=== PATIENT | female | born 1950 | race Caucasian/White ===

== ENCOUNTER 2021-04-12 02:46 | Inpatient (IN) ==
[2021-04-12] MEDS ORDERED: *HR* Dextrose 50 % in Water (Syg) 50 ML SYRINGE ONE (02:55)
[2021-04-12] MEDS ORDERED: *HR* Labetalol 20 MG/4 ML SYRINGE IVP ONE ×2 (02:59→03:00)
[2021-04-12] MEDS ORDERED: Isovue-370 500 ML BOTTLE IVP ONE (03:08)
[2021-04-12 03:17] LABS: Basophils % 0.4 %; Eosinophils % 0.8 %; Hemoglobin 14.1 g/dL (11.5-15.4); Immature Granulocytes % 0.8 % (0-4); Lymphocytes # 1.3 K/mcL (0.6-4.6); Lymphocytes % 25.2 %; Mean Corpuscular HGB Conc 33.6 g/dL (31.6-35.5); Mean Corpuscular Hemoglobin 31.3 pg (28.0-33.3); Mean Corpuscular Volume 93.1 fL (83.0-100.0); Monocytes # 0.3 K/mcL (0.0-1.3); Monocytes % 6.2 %; Neutrophils # 3.4 K/mcL (1.6-8.9); Platelet Count 171 K/mcL (140-400); Red Blood Count 4.51 M/mcL (3.82-4.97); Red Cell Distribution Width 13.4 % (11.5-14.5); Segmented Neutrophils % 66.6 %; White Blood Count 5.2 K/mcL (4.3-11.1)
[2021-04-12] MEDS ORDERED: *HR* Dextrose 50 % in Water (Syg) 50 ML SYRINGE IVP ONE (03:23)
[2021-04-12 03:28] LABS: INR 1.1
[2021-04-12 03:31] LABS: Activated Partial Thrombo Time 34.7 Seconds (26.0-36.0); Alanine Aminotransferase 20 Units/L (7-52); Albumin 4.1 g/dL (3.5-5.7); Albumin/Globulin Ratio 1.3 (1.1-2.2); Alkaline Phosphatase 51 Units/L (34-104); Aspartate Amino Transferase 51 Units/L (13-39); BUN/Creatinine Ratio 8 (6-26); Bilirubin,Total 0.7 mg/dL (0.3-1.0); Blood Urea Nitrogen 9 mg/dL (8-23); Calcium 9.1 mg/dL (8.6-10.3); Carbon Dioxide 23 mEq/L (23-29); Chloride 97 mEq/L (98-107); Ethanol < 10 mg/dL (Less than 10); Globulin 3.1 g/dL (2.4-3.5); Glucose 43 mg/dL (70-105); Osmolality,Calculated 266 (280-300); Sodium 130 mEq/L (136-145); Total Protein 7.2 g/dL (6.4-8.9); eGFR For African Americans 56 (> 60); eGFR For Non-African Americans 46 (> 60)
[2021-04-12 05:11] LABS: Influenza A PCR Negative (Negative); Influenza B PCR Negative (Negative); Resp. Syncytial Virus PCR Negative (Negative)
[2021-04-12 05:20] LABS: SARS-CoV-2 by PCR (In House) Positive (Negative)
[2021-04-12] MEDS ORDERED: Naloxone 0.4 MG/ML INJ IVP PRN (07:33)
[2021-04-12] MEDS ORDERED: Desmopressin Acetate SPRAY 5 ML BOTTLE NS PRN (14:28)
[2021-04-13 01:41] LABS: Basophils % 0.5 %; Eosinophils # 0.1 K/mcL (0.0-0.6); Eosinophils % 1.8 %; Hemoglobin 14.4 g/dL (11.5-15.4); Immature Granulocytes % 0.7 % (0-4); Lymphocytes # 2.1 K/mcL (0.6-4.6); Mean Corpuscular HGB Conc 32.7 g/dL (31.6-35.5); Mean Corpuscular Hemoglobin 30.7 pg (28.0-33.3); Mean Corpuscular Volume 93.8 fL (83.0-100.0); Mean Platelet Volume 10.2 fL (9.4-12.4); Monocytes # 0.5 K/mcL (0.0-1.3); Monocytes % 8.3 %; Neutrophils # 3.3 K/mcL (1.6-8.9); Platelet Count 218 K/mcL (140-400); Red Blood Count 4.69 M/mcL (3.82-4.97); Red Cell Distribution Width 13.8 % (11.5-14.5); Segmented Neutrophils % 54.7 %; White Blood Count 6.1 K/mcL (4.3-11.1)
[2021-04-13 01:55] LABS: Estimated Average Glucose 189 mg/dl; Hemoglobin A1C 8.2 %
[2021-04-13 02:00] LABS: Calcium 9.4 mg/dL (8.6-10.3); Potassium 4.3 mEq/L (3.5-5.1)
[2021-04-13] MEDS ORDERED: *HR* Dextrose 50 % in Water (Syg) 50 ML SYRINGE IVP PRN (08:09)
[2021-04-13] MEDS ORDERED: Dextrose Gel 15 GM/37.5 ML TUBE PO PRN ×2 (08:09)
[2021-04-13] MEDS ORDERED: D5% in Water 1,000 ML IVC PRN (08:09)
[2021-04-13] MEDS: Hydrocortisone 10 MG TABLET PO SCH (09:52)
[2021-04-13] MEDS: lisinopriL 20 MG TABLET PO SCH (09:52)
[2021-04-13] MEDS: Insulin LISPRO 300 UNITS/3 ML VIAL SUBQ SCH ×2 (12:23→16:43)
[2021-04-14 01:36] LABS: Basophils % 0.5 %; Eosinophils # 0.1 K/mcL (0.0-0.6); Eosinophils % 1.5 %; Hematocrit 40.9 % (35.3-44.9); Hemoglobin 13.4 g/dL (11.5-15.4); Immature Granulocytes % 0.7 % (0-4); Lymphocytes # 2.1 K/mcL (0.6-4.6); Lymphocytes % 34.5 %; Mean Corpuscular HGB Conc 32.8 g/dL (31.6-35.5); Mean Corpuscular Hemoglobin 30.7 pg (28.0-33.3); Mean Corpuscular Volume 93.6 fL (83.0-100.0); Mean Platelet Volume 10.5 fL (9.4-12.4); Monocytes # 0.5 K/mcL (0.0-1.3); Monocytes % 8.1 %; Neutrophils # 3.3 K/mcL (1.6-8.9); Platelet Count 247 K/mcL (140-400); Red Blood Count 4.37 M/mcL (3.82-4.97); Red Cell Distribution Width 13.8 % (11.5-14.5); Segmented Neutrophils % 54.7 %; White Blood Count 6.1 K/mcL (4.3-11.1)
[2021-04-14 01:55] LABS: Calcium 9.3 mg/dL (8.6-10.3); Magnesium 2.1 mg/dL (1.6-2.6); Phosphorous 3.2 mg/dL (2.7-4.5); Potassium 4.3 mEq/L (3.5-5.1)
[2021-04-14] MEDS: Insulin LISPRO 300 UNITS/3 ML VIAL SUBQ SCH ×3 (09:21→17:11)
[2021-04-14] MEDS: Hydrocortisone 10 MG TABLET PO SCH (09:21)
[2021-04-14] MEDS: lisinopriL 20 MG TABLET PO SCH (09:21)
[2021-04-14] MEDS ORDERED: QUEtiapine Fumarate 25 MG TABLET PO ONE (10:16)
[2021-04-15 02:41] LABS: Basophils # 0.1 K/mcL (0.0-0.2); Basophils % 0.9 %; Eosinophils # 0.1 K/mcL (0.0-0.6); Eosinophils % 1.2 %; Hematocrit 41.4 % (35.3-44.9); Hemoglobin 13.2 g/dL (11.5-15.4); Immature Granulocytes % 0.6 % (0-4); Lymphocytes # 2.3 K/mcL (0.6-4.6); Lymphocytes % 34.4 %; Mean Corpuscular HGB Conc 31.9 g/dL (31.6-35.5); Mean Corpuscular Hemoglobin 30.7 pg (28.0-33.3); Mean Corpuscular Volume 96.3 fL (83.0-100.0); Mean Platelet Volume 10.1 fL (9.4-12.4); Monocytes # 0.5 K/mcL (0.0-1.3); Monocytes % 7.6 %; Neutrophils # 3.6 K/mcL (1.6-8.9); Platelet Count 277 K/mcL (140-400); Red Cell Distribution Width 13.8 % (11.5-14.5); Segmented Neutrophils % 55.3 %; White Blood Count 6.6 K/mcL (4.3-11.1)
[2021-04-15 03:07] LABS: Calcium 9.2 mg/dL (8.6-10.3); Potassium 4.1 mEq/L (3.5-5.1)
[2021-04-15] MEDS: Hydrocortisone 10 MG TABLET PO SCH (08:00)
[2021-04-15] MEDS: lisinopriL 20 MG TABLET PO SCH (08:00)
[2021-04-15] MEDS: Insulin LISPRO 300 UNITS/3 ML VIAL SUBQ SCH ×3 (08:00→16:34)
[2021-04-16] MEDS: Insulin LISPRO 300 UNITS/3 ML VIAL SUBQ SCH ×2 (09:42→13:22)
[2021-04-16] MEDS: Hydrocortisone 10 MG TABLET PO SCH (10:03)
[2021-04-16] MEDS: lisinopriL 20 MG TABLET PO SCH (10:03)
[2021-04-16 13:00] VITALS: BP 148/82; PULSE 76; TEMP 97.9; O2SAT 88
== END 2021-04-16 15:45 | disposition home health service (06) | DRG 178 ==
LOC: 2ANU 02:46 → EMEROOARM 02:46 → SUATTDRO 06:46 → 2ANU 08:45
PROVIDERS: ADMIT Internal Medicine; ATTEND Internal Medicine